=== PATIENT | male | born 1980 | race Caucasian/White ===

== ENCOUNTER 2021-04-03 02:02 | Emergency (ER) | payer SELFPAY ==
[2021-04-03 02:48] LABS: RED BLOOD COUNT 5.22 M/UL (4.20-5.50); WHITE BLOOD COUNT 9.1 K/UL (4.5-11.0)
[2021-04-03 03:23] LABS: BUN/CREATININE RATIO 24 (0-10)
== END 2021-04-03 05:32 | disposition home or self-care (01) ==
LOC: ER1 02:02
PROVIDERS: Family Medicine
DX: R10.11 Right upper quadrant pain (principal); Z87.19 Personal history of other diseases of the digestive system
CPT/HCPCS: 36415; 80053; 82550; 82553; 83690; 83874; 84484; 85025; 96374; 96375; 99284; J1170; J2270; J2405